=== PATIENT | male | born 1945 | race Caucasian/White ===

== ENCOUNTER 2018-02-16 16:41 | Inpatient (IN) | payer MEDICARE ==
[~2018-02-16] VITALS: Ht 180.3 cm; Wt 113.6 kg
[2018-02-16] VITALS (7 sets, daily range): BP systolic 114–150; BP diastolic 62–79
--- NOTE | ~2018-02-16 | HEMODYNAMI ---
PATIENT:MAUREEN ROCHE MEDICAL RECORD: [id number] : 45 LOCATION:D.MS [place] ADMISSION DATE: 02/16/18 Generatedon:02/17/201812:48 Patient name: MAUREEN ROCHE Patient #: [id number] SSN: : 1945 Date of study: 02/17/2018 Page: Of Hemodynamic Procedure Report Patient Data Patient Demographics Procedure consent was obtained First Name: MAUREEN Gender: Male Last Name: MELCHOR : 1945 Patient #: [id number] Age: 72 year(s) Race: Unknown Additional ID: [id number] Contact details Address: [address] [place] [address] State: [place] City: [place] Zip code: [address] Past Medical History Allergies Allergen Reaction Date Comments Reported Other allergy 02/17/2018 codeine Admission Admission Data Admission Date: 02/16/2018 Admission Time: 21:21 Admit Source: Transfer acute care facility Room #: D.2211 Lab Results Lab Result Date: 02/17/2018 Lab Result Time: 8:30 Biochemistry Name Units Result Min Max BUN mg/dl 11 --(-*--)-- 7 18 Creatinine mg/dl 0.9 --(-*--)-- 0.6 1.3 CBC Name Units Result Min Max Hematocrit % 35.7 *-(----)-- 42 54 Hemoglobin g/dl 11.7 *-(----)-- 13.5 17.5 Procedure Procedure Types Cath Procedure Diagnostic Procedure LHC LHC w/Coronaries Peripheral Cath Diagnostic Procedure Annual Giving Officer Peripheral Procedures Four Vessel Arteriogram Procedure Description Procedure Date Procedure Date: 02/17/2018 Procedure Start Time: 12:34 Procedure End Time: 12:47 Procedure Staff Name Function Vel Garcia MD Performing Physician Ji Campbell RT Monitor Shayy Sellers RT Scrub Marisela Cohen RN Nurse Stuart Jennings RN Ssis Developer Procedure Data Cath Procedure Fluoroscopy Diagnostic fluoroscopy Total fluoroscopy Time: 2.1 time: 2.1 min min Diagnostic fluoroscopy Total fluoroscopy dose: 823 dose: 823 mGy mGy Contrast Material Contrast Material Type Amount (ml) Isovue 300 71 Entry Location Entry Primary Successful Side Size Upsize Upsize Entry Closure Succes sful Closure Location (Fr) 1 (Fr) 2 (Fr) Remarks Device Remarks Femoral Right 5 Fr Exoseal artery Estimated blood loss: 5 ml Diagnostic catheters Device Type Used For End Catheter Placement MULTIPACK JL 4.0 5Fr Procedure catheter MULTIPACK 3DRC 5Fr Procedure catheter MULTIPACK Pigtail 5 Fr Procedure catheter Procedure Complications No complications Procedure Medications Medication Administration Route Dosage 0.9% NaCl I.V. 100 ml/hr Oxygen etCO2 Nasal cannula 2 l/min Lidocaine 2% added to field 20 Heparin Flush Bag added to field 2 bags (1000units/500ml NS) Radial Cocktail added to field 1 syringe (Verapomil 2mg/Nitro 400mcg/Heparin 1500units) Versed I.V. 2 mg Fentanyl I.V. 50 mcg Versed I.V. 2 mg Fentanyl I.V. 50 mcg Hemodynamics Rest Heart Rate: 76 (bpm) Pressure Samples Time Site Value (mmHg) Purpose Heart Use Rate(bpm) 12:40 LV 128/8,14 Snapshot 75 12:41 AO 131/68(95) Pullback 71 12:41 LV 130/11,16 Pullback 71 Gradients Valve Time Site 1 Site 2 Mean SEP/DFP Peak To Heart Use (mmHg) (sec/min) Peak Rate (mmHg) (bpm) Aortic 12:41 LV AO 0 11 0 71 130/11,16 131/68(95) Calculations Valve P-P Mean Valve Index Valve Source Name Gradient Area Flow (cm2) Aortic 0 0 0 0 Snapshots Pre Cath Intra NCS Post Cath Vital Signs Time Heart Resp SPO2 etCO2 NIBP (mmHg) Rhythm Pain Sedation Rate (ipm) (%) (mmHg) Status Level (bpm) 12:24:50 73 26 99 31 136/85(129) NSR 0 (11) 10(A) , No pain 12:29:15 73 19 97 15 129/74(98) NSR 0 (11) 10(A) , No pain 12:33:35 77 16 96 33.9 115/70(93) NSR 0 (11) 10(A) , No pain 12:38:42 76 20 98 33 137/75(116) NSR 0 (11) 10(A) , No pain 12:43:02 76 19 97 35.4 120/74(97) NSR 0 (11) 10(A) , No pain Medications Time Medication Route Dose Verified Delivered Reason Notes E ffectiveness by by 12:23:50 0.9% NaCl I.V. 100 Vel Marisela used for ml/hr Radha Noel procedure MD [facility]I 12:23:57 Oxygen etCO2 2 l/min Vel Marisela used for Nasal Radha Noel procedure cannula MD [facility]I 12:24:02 Lidocaine 2% added 20ml Vel Vel for local to vial Radha Radha anesthetic field MD [facility] 12:24:08 Heparin Flush added 2 bags Vel Crowder used for Bag to [facility] procedure (1000units/500ml field MD [facility] NS) 12:24:16 Radial Cocktail added 1 Vel Vel used for (Verapomil to syringe Radha Radha procedure 2mg/Nitro field MD [facility] 400mcg/Heparin 1500units) 12:32:02 Fentanyl I.V. 50 mcg Vel Marisela for [facility] sedation MD [facility]I 12:32:57 Versed I.V. 2 mg Vel Marisela for [facility] Cohen sedation MD [facility]I 12:39:35 Versed I.V. 2 mg Vel Marisela for [facility] Cohen sedation MD LAI 12:39:39 Fentanyl I.V. 50 mcg Vel Marisela for [facility] Cohen sedation MD LAIforeign exchange student coordinator Log Time Note 11:56:30 Informed consent obtained and on chart 11:56:51 Diagnostic Cath status Elective 11:56:53 Stuart Jennings RN sent for patient. Start room use. 11:56:53 Time tracking: Regular hours (M-F 7:00 - 5:00) 11:56:56 Plan of Care:Hemodynamics will remain stable., Cardiac rhythm will remain stable., Comfort level will be maintained., Respiratory function will remain adequate., Patient/ family verbilizes understanding of procedure., Procedure tolerated without complication., Recovers from procedure without complications.. 11:59:02 Lab Result : BUN 11 mg/dl 11:59:02 Lab Result : Hemoglobin 11.7 g/dl 11:59:02 Lab Result : Creatinine 0.9 mg/dl 11:59:02 Lab Result : Hematocrit 35.7 % 11:59:04 Lab results completed and on chart. 11:59:55 H&P Date Dictated: 02/16/2018 Within 30 days and on chart.. 11:59:58 Admit Source: Transfer acute care facility 12:15:25 Patient received from Med/Surg to CCL 1 Alert and oriented. Tansferred to table in Supine position. 12:15:26 Warm blankets applied, and avery hugger turned on for patient comfort. 12:15:27 Correct patient and procedure confirmed by team. 12:15:27 ECG and BP/O2 sat monitors applied to patient. 12:15:31 Pre-procedure instructions explained to patient. 12:15:32 Pre-op teaching completed and patient verbalized understanding. 12:15:33 Family in waiting room. 12:23:37 Vital chart was started 12:23:50 0.9% NaCl 100 ml/hr I.V. was administered by Marisela Cohen RN; used for procedure; 12:23:57 Oxygen 2 l/min etCO2 Nasal cannula was administered by Marisela Cohen RN; used for procedure; 12:24:02 Lidocaine 2% 20ml vial added to field was administered by Vel Garcia MD; for local anesthetic; 12:24:08 Heparin Flush Bag (1000units/500ml NS) 2 bags added to field was administered by Vel Garcia MD; used for procedure; 12:24:16 Radial Cocktail (Verapomil 2mg/Nitro 400mcg/Heparin 1500units) 1 syringe added to field was administered by Vel Garcia MD; used for procedure; 12:30:11 Baseline sample Acquired. 12:30:13 SHEATH 5FR [place] ([id number]) opened to sterile field. 12:30:13 Rhythm: sinus rhythm 12:30:15 Full Disclosure recording started 12:30:16 Patient NPO since Midnight. 12:30:24 Patient allergic to Other allergycodeine 12:30:26 Is the patient allergic to Iodine/contrast media? No. 12:30:27 Is patient on blood thinner?Yes 12:30:29 ACC The patient was administered the following blood thiners within the last 24 hours: ACCPlavix 12:30:31 Patient diabetic? Yes. 12:30:33 If diabetic: On Metformin? Yes 12:30:35 If on Metformin: Last Dose? 02/16/2018 12:31:06 Previous problem with sedation/anesthesia? No ? 12:31:07 Snore? Yes 12:31:08 Sleep apnea? Yes 12:31:09 Deviated septum? No 12:31:13 Opens mouth fully? Yes 12:31:14 Sticks out tongue? Yes 12:31:15 Airway obstruction? No ? 12:31:18 Dentures? No ? 12:31:21 Pre procedure: right dorsailis pedis pulse 2+ Normal; easily identifiable; not easily obliterated 12:31:23 Modified Chaz's test Ulnar < 7 seconds 12:31:25 Patient pain scale 0/10 ?. 12:31:31 IV patent on arrival in right antecubital with 0.9% NaCl at [facility]. 12:31:35 Right Radial & Right Groin area was prepped with chlora-prep and draped in sterile fashion 12:31:36 Alarms reviewed by R. N. 12:31:36 Sharps counted by scrub and verified by R.N. 12:31:47 Use device set Radial Dx or PCI 12:31:48 ACIST Syringe (14377) opened to sterile field. 12:31:48 Medline Cath Pack ([id number]) opened to sterile field. 12:31:48 Bag Decanter (2002S) opened to sterile field. 12:31:49 ACIST Hand Control (80492) opened to sterile field. 12:31:50 ACIST Manifold (76262) opened to sterile field. 12:31:50 Tegaderm 4 x 4 (1626W) opened to sterile field. 12:31:50 MBrace Wrist Support ([id number]) opened to sterile field. 12:31:52 DIAGNOSTIC WIRE .035 260cm J wire (321968) opened to sterile field. 12:31:56 Physician arrived 12:31:56 --------ALL STOP TIME OUT------ 12:31:57 Final Timeout: patient, procedure, and site verified with staff and physician. All members of the team are in agreement. 12:31:58 Right Radial & Right Groin site verified by team. 12:32:00 Physical assessment completed. ASA score P 2 - A patient with mild systemic disease as per Vel Garcia MD. 12:32:02 Fentanyl 50 mcg I.V. was administered by Marisela Cohen RN; for sedation; 12:32:03 Sedation plan: IV Moderate Sedation Medication:Versed, Fentanyl 12:32:57 Versed 2 mg I.V. was administered by Marisela Cohen RN; for sedation; 12:33:37 Use device set Multipack Set 12:33:39 DIAGNOSTIC Multipack 5Fr catheter set ([id number]) opened to sterile field. 12:34:17 Procedure started. 12:34:20 Local anesthetic to right femoral artery with Lidocaine 2% by Vel Garcia MD.INITIAL ACCESS ONLY 12:34:42 A 5 Fr sheath was inserted into the Right Femoral artery 12:35:20 A MULTIPACK JL 4.0 5Fr catheter was advanced over the wire and used for Procedure. 12:36:05 LCA angiography performed. 12:36:46 Catheter exchanged over wire. 12:37:11 A MULTIPACK 3DRC 5Fr catheter was advanced over the wire and used for Procedure. 12:37:54 RCA angiography performed. 12:38:19 Right carotid angiography performed. 12:39:03 Left carotid angiography performed. 12:39:26 Catheter exchanged over wire. 12:39:32 A MULTIPACK Pigtail 5 Fr catheter was advanced over the wire and used for Procedure. 12:39:35 Versed 2 mg I.V. was administered by Marisela Cohen RN; for sedation; 12:39:39 Fentanyl 50 mcg I.V. was administered by Marisela Cohen RN; for sedation; 12:40:38 LV gram done using WHITMAN 12:40:40 Injector settings: Ml/sec: 10, Volume: 20, 12:40:42 LV hemodynamics recorded. 12:40:46 EF : 55 % 12:41:27 EXOSEAL 5Fr (EX500) opened to sterile field. 12:41:33 Catheter removed. 12:41:43 Sheath removed intact; hemostasis achieved with Exoseal to the Right Femoral artery. 12:41:45 Procedure ended.(Physican Out) 12:42:04 Fluoroscopy time 02.10 minutes. 12:42:09 Fluoroscopy dose: 823 mGy 12:42:09 Flurop Dose total: 823 12:42:15 Contrast amount:Isovue 300 71ml. 12:42:17 Sharps counted by scrub and verified by R.N. 12:42:18 Insertion/operative site no bleeding no hematoma. 12:42:20 Post-op/insertion site Right Femoral artery dressed using a 4 x 4 and Tegaderm. 12:43:24 Post right femoral artery:stable, soft, clean and dry 12:43:44 Post Procedure Pulses reassessed and unchanged 12:43:47 Post-procedure physical assessment completed. ASA score P 2 - A patient with mild systemic disease as per Vel Garcia MD. 12:43:49 Post procedure rhythm: unchanged. 12:43:52 Estimated blood loss: 5 ml 12:43:53 Post procedure instruction explained to patient.Patient verbalizes understanding. 12:43:54 Patient needs reinforcement of post procedure teaching. 12:44:20 Procedure type changed to Cath procedure, Diagnostic procedure, LHC, LHC w/Coronaries, Peripheral Cath Diagnostic Procedure, Annual Giving Officer Peripheral Procedures, Four Vessel Arteriogram 12:44:48 Procedure and supply charges have been captured, reviewed, submitted and are correct. 12:44:51 Procedure Complication : No complications 12:44:53 Vital chart was stopped 12:46:57 See physician's report for complete and final results. 12:46:59 Report given to PCU. 12:47:01 Patient transfered to PCU with Stretcher. 12:47:02 Procedure ended. 12:47:02 Full Disclosure recording stopped 12:47:05 End room use (Document Last) Device Usage Item Name Manufacture Quantity Catalog Hospital Part Current Minimal Lot# / Number Charge Number Stock Stock Serial# Code ACIST Acist 1 52029 141471 991183 481266 20 Syringe Medical (38810) Systems Inc Medline Medline 1 [id number] 478573 93868 242046 5 Cath Pack ([id number]) Bag Microtek 1 2001S 421132 37666 637255 5 Decanter Medical Inc. () ACIST Hand Acist 1 43449 597817 486270 499787 5 Control Medical (05035) Systems Inc ACIST Acist 1 73855 157972 710343 838001 5 Manifold Medical (70249) Systems Inc Tegaderm 4 3M 1 1626W 453587 643015 277703 5 x 4 (1626W) MBrace Advanced 1 140-0250-00 155635 28514 698454 5 Wrist Vascular Support Dynamics ([id number]) DIAGNOSTIC St Kelvin 1 698416 964108 178229 646717 30 WIRE .035 260cm J wire (479535) DIAGNOSTIC Cardinal 1 EJ0641 310032 59062 168707 30 Multipack Health 5Fr catheter set (XL3068) MULTIPACK Cardinal 1 027144 5 JL 4.0 5Fr Health catheter MULTIPACK Cardinal 1 293622 5 3DRC 5Fr Health catheter SHEATH 5FR Terumo 1 NME768 632235 923983 728254 5 [place] (PNQ528) MULTIPACK Cardinal 1 225656 5 Pigtail 5 Health Fr catheter EXOSEAL 5Fr Cardinal 1 EX500 289124 469153 235948 10 (EX500) Health Signature Audit [place] Stage Time Signature Unsigned Intra-Procedure 02/17/2018 Ji Campbell 12:48:01 PM RT(R) Signatures Monitor : Ji Campbell RT Signature : Date : Time : [place] [id number] [place] [address]
--- NOTE | ~2018-02-16 | MORECARE ---
CASE MANAGEMENT DISCHARGE SUMMARY PATIENT: MAUREEN ROCHE UNIT: [id number] ADM DATE: 02/17/18 AGE: 72 : 45 SEX: M ROOM/BED: D.2118 AUTHOR: BRENTON HURATDO PHYSICIAN: REFERRING PHYSICIAN: TRENT RIVERS MD DATE OF SERVICE: 02/19/18 Discharge Plan Patient Name: MAUREEN ROCHE [facility] [facility] 1945 Planned Disposition: Home with Home Health Anticipated Discharge Date: 02/19/18 Discharge Date: Expected LOS: 2 Initial Reviewer: [email or web address] Initial Review Date: 02/16/2018 Generated: 02/19/18 5:04 pm External Providers External Provider: [facility] Next Contact Date: 02/19/2018 Service Request Date: Service Type: Resolution: Reviewer: Comments: Patient Name: MAUREEN ROCHE Page [id number] at 1604 All edits/amendments must be made on the electronic document DICTATION DATE: 02/19/18 160 DEICER INSPECTOR ELECTRIC: MANN 02/19/18 160 RPT#: [id number] DC DATE:02/19/18 STATUS: DIS IN [facility] [address] [place] [address] END OF REPORT
--- NOTE | ~2018-02-16 | HP ---
PATIENT: MAUREEN ROCHE MEDICAL RECORD: [id number] ACCOUNT: [id number] LOCATION:[address] : [birth year] ADMISSION DATE: 02/17/18 PCP: No PCP HISTORY AND PHYSICAL EXAMINATION HISTORY OF PRESENT ILLNESS: A 72-year-old gentleman with a history of coronary artery disease with early atherosclerotic plaquing via previous angiography, has a history of hypertension, diabetes, had onset yesterday of chest pain, left arm numbness, and marked weakness, questionable some dysarthria, slurred speech, noted have elevated troponin. CT of the head negative for acute intracranial pathology. Transferred here for further evaluation. PAST MEDICAL HISTORY: Includes, 1. History of hypertension. 2. Hyperlipidemia. 3. Diabetes mellitus. MEDICATIONS: Typically include Zanaflex 4 mg p.o. daily, lisinopril 40 mg p.o. daily, metoprolol 100 mg p.o. daily, Lasix 20 daily, potassium 10 mEq daily, metformin 500 b.i.d. ALLERGIES: CODEINE, ATROPINE. SOCIAL HISTORY: Lives in [place], nonsmoker, nondrinker. He takes care of all his ADLs. No set exercise program REVIEW OF SYSTEMS: The patient reports easy bruising but reports no swollen glands. The patient reports no fever, no night sweats, no significant weight gain, no significant weight loss. No significant exercise tolerance. The patient reports no dry eyes, no irritation, no vision change. Patient reports no difficulty hearing and no ear pain. Patient reports no frequent nose bleeds or nose and sinus problems. Patient reports on arm pain on exertion. No shortness of breath while lying down. No history of heart murmur. Patient reports no cough, no wheezing or coughing up blood. Patient reports no abdominal pain, no vomiting. Normal appetite. No diarrhea and not vomiting blood. No nausea and no constipation. Patient reports no incontinence. No difficulty urinating. No hematuria. No increased frequency. Patient reports no muscle aches. No weakness, no arthralgias, no back pain. No swelling of the extremities. Patient reports no abnormal mole, no jaundice, no rashes. Reports no loss of consciousness. No weakness and no numbness. No seizures, dizziness, or headaches. The patient reports no depression, no sleep disturbance, feeling safe in a relationship and no alcohol abuse. Patient reports on fatigue. Reports no runny nose or sinus pressure. No itching, no hives, and no frequent sneezing. PHYSICAL EXAMINATION: GENERAL: Pleasant gentleman in no acute distress, appears stated age. VITAL SIGNS: Blood pressure 132/78, pulse 61 and regular. HEENT: Normocephalic, atraumatic. NECK: Questionable right carotid bruit. HEART: Regular, II/ systolic ejection murmur. LUNGS: Good air excursion. ABDOMEN: Soft, nontender. EXTREMITIES: Pulses 2+ with no edema. NEUROLOGIC: Grossly intact. HISTORY AND PHYSICAL [id number] MAUREEN ROCHE DIAGNOSTIC DATA: ECG shows nonspecific ST-T changes, minor. IMPRESSION: Tmx-IB-xwoqoztla myocardial infarction, transient ischemic attack, diabetes mellitus, and hypertension. PLAN: For diagnostic angiography, 4-vessel arteriography, intervention based on above. TRANSINT:[id number] Voice Confirmation ID: [id number] DOCUMENT ID: [id number] MICHAEL OLIVAS MD at 1546 CC: [id number] DICTATION DATE: 02/17/18825 BRANDING MACHINE TENDER: 02/17/18925 ADM IN [facility] [address] [place] [id number]
--- NOTE | ~2018-02-16 | MORECARE ---
CASE MANAGEMENT DISCHARGE SUMMARY PATIENT: MAUREEN ROCHE UNIT: [id number] ADM DATE: 02/17/18 AGE: 72 : 45 SEX: M ROOM/BED: D.2118 AUTHOR: BRYANTDOC PHYSICIAN: REFERRING PHYSICIAN: TRENT RIVERS MD DATE OF SERVICE: 02/19/18 Discharge Plan Patient Name: MAUREEN ROCHE Facility: [facility]:[place] : 1945 Planned Disposition: Home with Home Health Anticipated Discharge Date: 02/19/18 Discharge Date: 02/19/2018 Expected LOS: 2 Initial Reviewer: [email or web address] Initial Review Date: 02/16/2018 Generated: 02/19/18 5:15 pm Comments DCP- Discharge Planning Updated by [email or web address]: Isiah Basurto on 02/19/18 3:[address] Patient Name: MAUREEN ROCHE Admission Status: ER Accout number: [id number] Admission Date: 02-17-2018 : 1945 Admission Diagnosis: Attending: TRENT RIVERS Current LOS: 2 Anticipated DC Date: 02-19-2018 Planned Disposition: Home with Home Health Primary Insurance: MEDICARE A & B PLANNED EXTERNAL PROVIDER: [facility] Discharge Planning Comments: CM RECEIVED INPATIENT REHAB PRESCREENING ORDER, RECEIVED MESSAGE FROM LARRY OF INPATIENT REHAB, PT NOT MEETING CRITERIA FOR INPATIENT REHAB THERAPY SERVICES HAVE SIGNED OFF. CM MET WITH PT IN ROOM TO DISCUSS DISCHARGE PLANNING AND NEEDS. PT REPORTS LIVING AT HOME INDEPENDENTLY; PT HAS A FAMILY LIVING WITH HIM NOW AND CAN ASSIST HIM IF NEEDED. PT HAS CPAP FROM [facility] AND NO NO OUTSIDE SERVICES ASSISTING IN THE HOME. CM DISCUSSED AVAILABILITY OF HOME HEALTH, REHAB SERVICES AND MEDICAL EQUIPMENT. PT WANTS HOME HEALTH WITH NO PREFERENCE ON PROVIDER, CHOICE SIGNED; PT REPORTS HIS BROTHER OR FRIEND WILL PICK HIM UP FOR DISCHARGE HOME TODAY. IMPORTANT MESSAGE FROM MEDICARE PROVIDED AND EXPLAINED. CM CALLED [facility], , SPOKE TO KHALIF, PROVIDED REFERRAL INFORMATION, PT TO BE ADMITTED TOMORROW. CM FAXED REFERRAL INFORMATION TO [facility], . PROJECTION PRINTER NURSE NOTIFIED. Transport Conductor: Isiah Basurto DCPIA - Discharge Planning Initial Assessment Updated by [email or web address]: Isiah Basurto on 02/19/18 4:06 pm * Is the patient Alert and Oriented? Yes * How many steps to enter\exit or inside your home? * PCP DR. HUSSEIN IN [place] * Pharmacy [facility] IN [place] * Preadmission Environment Home with Family * ADLs Independent * Equipment CPAP * Other Equipment [facility] - MEDICAL EQUIPMENT PROVIDER * List name and contact numbers for known caregivers / representatives who currently or will assist patient after discharge: CECILIA ROCHE, BROTHER, KERRY JENKINS, FRIEND, * Verbal permission to speak to the caregivers and representatives has been obtained from the patient. N/A * Community resources currently utilized None * Please name any agencies selected above. NONE * Additional services required to return to the preadmission environment? No * Can the patient safely return to the preadmission environment? Yes * Has this patient been hospitalized within the prior 30 days at any hospital? No External Providers External Provider: [facility] Next Contact Date: 02/19/2018 Service Request Date: Service Type: Resolution: Reviewer: Comments: Coverage Notice Reviewer: [email or web address] Lico Basurto Notice Issued Date-Time: 02/19/2018 13:30 Notice Type: IM Discharge Notice Notice Delivered To: Patient Relationship to Patient: Analytical Technician Name: Delivery Method: HAND - Hand Delivered Viola Days: Prior Verbal Notification: Recipient Understood Notice: Yes Recipient Signature: Yes Med Rec Note Co-signed by Attending: Coverage Notice Comment: Reviewer: [email or web address] Lico Basurto Notice Issued Date-Time: 02/19/2018 13:30 Notice Type: Patient Choice Letter Notice Delivered To: Patient Relationship to Patient: Analytical Technician Name: Delivery Method: HAND - Hand Delivered Viola Days: Prior Verbal Notification: Recipient Understood Notice: Yes Recipient Signature: Yes Med Rec Note Co-signed by Attending: Coverage Notice Comment: NO [facility] PREFERENCE. Patient Name: MAUREEN ROCHE Page 11545 at 1615 All edits/amendments must be made on the electronic document DICTATION DATE: 02/19/18 1612 TRAVEL NURSE: MANN 02/19/18 1612 RPT#: [id number] DC DATE:02/19/18 STATUS: DIS IN [facility] [address] [place] [address] END OF REPORT
--- NOTE | ~2018-02-16 | OP ---
PATIENT NAME: MAUREEN ROCHE MEDICAL RECORD: [id number] :45 LOCATION:D.M2 D.2118 ADMISSION DATE:02/17/18 SURGEON: MICHAEL OLIVAS MD DATE OF OPERATION: 02/17/2018 PROCEDURE: Left heart catheterization, selective coronary angiography plus 4-vessel arteriography, right femoral approach. CATHETERS: A 5-Micronesian sheath, 5/4 left and right Dunia, 5/4 pig. The procedure was well tolerated and the patient returned to guillen, sheath removed. ExoSeal device placed. FOUR-VESSEL: Right common carotid; the right common carotid was selectively engaged. It shows smooth-walled vessel, free of disease. Right internal carotid is smooth-walled vessel, free of disease. Right external carotid is smooth-walled vessel, free of disease. The catheter was then pulled proximally and the left common carotid was selectively engaged. It shows smooth-walled vessel, free of disease. Left internal carotid is a smooth-walled vessel, free of disease. Left external carotid is smooth-walled vessel, free of disease. CORONARY ANGIOGRAPHY: Left ventriculography in 30-degree WHITMAN view; normal wall motion and normal systolic function. CORONARY ANATOMY: LEFT MAIN: Left main is free of disease. LAD: Free of disease in the diagonal system. CIRCUMFLEX: Free of disease in the marginal system. RIGHT CORONARY ARTERY: Dominant artery, gives rise to PDA, free of disease. IMPRESSION: Normal left ventricular systolic function, normal coronary anatomy. TRANSINT:[id number] Voice Confirmation ID: [id number] DOCUMENT ID: [id number] MICHAEL OLIVAS MD at 1546 CC: [id number] DICTATION DATE: 02/17/18 1246 MEDICAL REFERRAL COORDINATOR: 02/17/18 1346 ADM IN [facility] [address] [place] [address]
[2018-02-16] MEDS ORDERED: FUROSEMIDE20 MG PO (16:59)
[2018-02-16] MEDS ORDERED: GLUCOPHAGE500 MG PO (17:00)
[2018-02-16] MEDS ORDERED: PIOGLITAZONE HC30 MG PO (17:00)
[2018-02-16] MEDS ORDERED: ZESTRIL40 MG PO (17:00)
[2018-02-16] MEDS ORDERED: TOPROL XL100 MG PO (17:00)
[2018-02-16] MEDS ORDERED: K-TAB10 MEQ PO (17:01)
[2018-02-16] MEDS ORDERED: ZANAFLEX4 MG PO (17:01)
[2018-02-17] VITALS (9 sets, daily range): BP systolic 127–141; BP diastolic 62–80; Ht 180.3 cm; Wt 113.6 kg
[2018-02-17 02:05] LABS: CKMB 0.6 U/L (0.0-3.6); CREATINE KINASE 98 UL (21-232); TROPONIN-I 0.017 ng/mL (0.000-0.060)
[2018-02-17 08:42] LABS: BASOPHILS 0.4 % (0-2); EOSINOPHILS 3.8 % (0-7); HEMATOCRIT 35.7 % (42.0-54.0); HEMOGLOBIN 11.7 g/dL (13.5-17.5); IMMATURE GRANULOCYTES 0.2 % (0-5); LYMPHOCYTES 46.2 % (15-50); MCH 32.5 pg (26.0-34.0); MCHC 32.8 g/dL (31.0-37.0); MCV 99.2 fL (80.0-100.0); MEAN PLATELET VOLUME 9.3 fL (7.4-10.4); MONOCYTES 9.5 % (2-11); NEUTROPHILS 39.9 % (40-80); PLATELET COUNT 170 10x3/uL (130-400); RDW 13.9 % (11.5-14.5); WBC 5.3 10x3/uL (4.8-10.8)
[2018-02-17 09:06] LABS: CALC OSMOLALITY 279 mosm/kg (275-300); CALCIUM 7.8 mg/dL (8.5-10.1); CARBON DIOXIDE 28.2 mmol/L (21.0-32.0); CHLORIDE - SERUM 104 mmol/L (98-107); CKMB 0.4 U/L (0.0-3.6); CREATINE KINASE 89 UL (21-232); CREATININE - SERUM 0.9 mg/dL (0.6-1.3); GLUCOSE 160 mg/dL (74-106); POTASSIUM - SERUM 4.1 mmol/L (3.5-5.1); SODIUM 139 mmol/L (136-145); TROPONIN-I 0.017 ng/mL (0.000-0.060); UREA NITROGEN 11 mg/dL (7-18); eGFR NON AFRICAN AMERICAN 88 mL/min (90-120)
[2018-02-18] VITALS: BP 124/74
[2018-02-18 05:34] LABS: BASOPHILS 0.2 % (0-2); HEMATOCRIT 34.4 % (42.0-54.0); HEMOGLOBIN 11.2 g/dL (13.5-17.5); IMMATURE GRANULOCYTES 0.2 % (0-5); LYMPHOCYTES 34.2 % (15-50); MCHC 32.6 g/dL (31.0-37.0); MCV 98.3 fL (80.0-100.0); MEAN PLATELET VOLUME 9.2 fL (7.4-10.4); MONOCYTES 12.4 % (2-11); PLATELET COUNT 169 10x3/uL (130-400); WBC 5.2 10x3/uL (4.8-10.8)
[2018-02-18 05:48] LABS: CALC OSMOLALITY 282 mosm/kg (275-300); CALCIUM 7.8 mg/dL (8.5-10.1); CHLORIDE - SERUM 106 mmol/L (98-107); GLUCOSE 152 mg/dL (74-106); POTASSIUM - SERUM 3.8 mmol/L (3.5-5.1); SODIUM 140 mmol/L (136-145); eGFR NON AFRICAN AMERICAN 78 mL/min (90-120)
[2018-02-18 05:54] LABS: UREA NITROGEN 14 mg/dL (7-18)
[2018-02-18 08:30] VITALS: BP 132/70
[2018-02-18 12:08] VITALS: BP 133/58
[2018-02-18 16:08] VITALS: BP 139/82
[2018-02-18 21:09] VITALS: BP 141/81
[2018-02-19 04:00] VITALS: BP 136/84
[2018-02-19 05:59] LABS: BASOPHILS 0.4 % (0-2); EOSINOPHILS 5.7 % (0-7); HEMATOCRIT 34.7 % (42.0-54.0); HEMOGLOBIN 11.4 g/dL (13.5-17.5); IMMATURE GRANULOCYTES 0.4 % (0-5); LYMPHOCYTES 40.4 % (15-50); MCH 32.2 pg (26.0-34.0); MCHC 32.9 g/dL (31.0-37.0); MEAN PLATELET VOLUME 8.8 fL (7.4-10.4); MONOCYTES 11.4 % (2-11); NEUTROPHILS 41.7 % (40-80); PLATELET COUNT 159 10x3/uL (130-400); RBC 3.54 10x6/uL (4.20-6.10); RDW 13.8 % (11.5-14.5); WBC 4.9 10x3/uL (4.8-10.8)
[2018-02-19 06:26] LABS: CALC OSMOLALITY 281 mosm/kg (275-300); CALCIUM 7.7 mg/dL (8.5-10.1); CARBON DIOXIDE 24.5 mmol/L (21.0-32.0); CHLORIDE - SERUM 107 mmol/L (98-107); CHOL - HDL RATIO 3.9 ratio (2.3-4.9); CHOLESTEROL, TOTAL 155 mg/dL (0-200); CREATININE - SERUM 0.9 mg/dL (0.6-1.3); GLUCOSE 144 mg/dL (74-106); HDL CHOLESTEROL 40 mg/dL (32-96); LDL CHOLESTEROL 99 mg/dL (0-100); LDL-HDL RATIO 2.5 ratio (1.5-3.5); SODIUM 140 mmol/L (136-145); TRIGLYCERIDE 81 mg/dL (30-200); UREA NITROGEN 13 mg/dL (7-18); eGFR NON AFRICAN AMERICAN 88 mL/min (90-120)
[2018-02-19 08:25] VITALS: BP 146/72
[2018-02-19 12:15] VITALS: BP 143/74
[2018-02-19] MEDS ORDERED: ASPIRIN325 MG PO (14:18)
[2018-02-19] MEDS ORDERED: LIPITOR20 MG PO (14:18)
== END 2018-02-19 16:03 | disposition home health service (06) | DRG 65 ==
LOC: D.ER 16:41 → OBSVTIME 21:21 → D.EDHOLD 21:21 → D.MS 23:10 → D.M2 02-17 12:49
PROVIDERS: Emergency Medicine; Internal Medicine Interventional Cardiology; Internal Medicine Nephrology
PROC: 4A023N7 Measurement of Cardiac Sampling and Pressure, Left Heart, Percutaneous Approach (ICD-10-PCS; 2018-02-17)
PROC: B3151ZZ Fluoroscopy of Bilateral Common Carotid Arteries using Low Osmolar Contrast (ICD-10-PCS; 2018-02-17)
PROC: B3181ZZ Fluoroscopy of Bilateral Internal Carotid Arteries using Low Osmolar Contrast (ICD-10-PCS; 2018-02-17)
PROC: B31C1ZZ Fluoroscopy of Bilateral External Carotid Arteries using Low Osmolar Contrast (ICD-10-PCS; 2018-02-17)
PROC: B2111ZZ Fluoroscopy of Multiple Coronary Arteries using Low Osmolar Contrast (ICD-10-PCS; principal; 2018-02-17 12:00)
PROC: B2151ZZ Fluoroscopy of Left Heart using Low Osmolar Contrast (ICD-10-PCS; 2018-02-17 12:00)
DX: I63.9 Cerebral infarction, unspecified (principal); J98.11 Atelectasis; E11.9 Type 2 diabetes mellitus without complications; I10 Essential (primary) hypertension; G47.33 Obstructive sleep apnea (adult) (pediatric); N40.0 Benign prostatic hyperplasia without lower urinary tract symptoms; D64.9 Anemia, unspecified